=== PATIENT | male | born 1950 | race Caucasian/White ===

== ENCOUNTER 2021-03-28 02:55 | Emergency (ER) | payer MEDICARE, OTHER ==
[~2021-03-28] VITALS: Ht 188 cm; Wt 111.1 kg
[2021-03-28] MEDS ORDERED: ASPIRIN 81 MG CHEW TAB PO ONE (03:45)
[2021-03-28] MEDS ORDERED: ASPIRIN 325 MG TAB ONE (03:54)
[2021-03-28 05:02] VITALS: BP 123/63
== END 2021-03-28 05:02 | disposition home or self-care (01) ==
LOC: FSED 03:25
DX: M54.89 Other dorsalgia (principal); K29.60 Other gastritis without bleeding; I48.91 Unspecified atrial fibrillation; M06.9 Rheumatoid arthritis, unspecified; Z87.891 Personal history of nicotine dependence; Z88.8 Allergy status to other drugs, medicaments and biological substances; Z79.02 Long term (current) use of antithrombotics/antiplatelets
CPT/HCPCS: 71045; 80053; 84484; 85025; 93005; 99284